=== PATIENT | female | born 1965 | race American Indian/Alaskan Native ===

== ENCOUNTER 2016-05-09 10:07 | Outpatient (CLI) | payer OTHER ==
--- NOTE | 2016-05-09 13:44 | Mammography Report ---
BILATERAL DIGITAL SCREENING MAMMOGRAM with CAD: 05/09/16 10:07:00 CLINICAL: Baseline screening. FINDINGS: The breasts are almost entirely fatty.A few bilateral benign calcifications. No mass, architectural distortion or suspicious calcifications. IMPRESSION: No mammographic evidence of malignancy. BI-RADS CATEGORY: 2 -- Benign RECOMMENDATION: Routine mammographic screening in one year. COMMENT: Patient follow-up letters are generated by our [employer] application.
== END 2016-05-09 10:08 | disposition home or self-care (01) ==
LOC: SPVWC 10:07
PROVIDERS: ATTEND Family Medicine
DX: Z12.31 Encounter for screening mammogram for malignant neoplasm of breast (principal)
CPT/HCPCS: 77067; G0202

== ENCOUNTER 2016-06-04 10:32 | Outpatient (CLI) | payer OTHER ==
--- NOTE | 2016-06-05 10:08 | Ultrasound Report ---
TRANSABDOMINAL AND TRANSVAGINAL PELVIC ULTRASOUND: 06/04/16 10:32:00 CLINICAL: Enlarged uterus. FINDINGS: Transabdominal and transvaginal pelvic ultrasound demonstrated a retroflexed uterus measuring 9.2 x 5.5 x 6.4 cm. Normal uterine contour. An anterior intramural fundal fibroid measures 1.0 x 0.5 x 0.8 cm an echogenic anterior cervical mass measures 1.5 x 1.2 x 1.7 cm. The endometrium is normal and measures 3.2 m AP thickness. Normal ovaries with a dominant 1.4 cm follicle the right ovary. The right ovary measures 2.6 x 2.1 x 2.8cm. The left ovary measures 3.3 x 1.5 x 1.4cm. No adnexal mass. No free fluid. Normal urinary bladder. IMPRESSION: 1. A retroflexed fibroid uterus with no uterine enlargement. 2. A 1.7 cm anterior cervical mass. This may be a calcified fibroid but neoplasm is a consideration. 3. Normal ovaries.
== END 2016-06-04 10:33 | disposition home or self-care (01) ==
LOC: SPVIMAG 10:32
PROVIDERS: ATTEND Family Medicine
DX: D25.9 Leiomyoma of uterus, unspecified (principal); N88.8 Other specified noninflammatory disorders of cervix uteri
CPT/HCPCS: 76830; 76856

== ENCOUNTER 2017-07-15 08:54 | Outpatient (CLI) | payer OTHER ==
--- NOTE | 2017-07-15 13:31 | Mammography Report ---
BILATERAL DIGITAL SCREENING MAMMOGRAM with CAD: 07/15/17 08:54:00 CLINICAL: Routine screening. COMPARISON:05/09/16 FINDINGS: The breasts are almost entirely fatty. No mass, architectural distortion or suspicious calcifications. IMPRESSION: No mammographic evidence of malignancy. BI-RADS CATEGORY: 1 - - Negative RECOMMENDATION: Routine mammographic screening in one year. COMMENT: Patient follow-up letters are generated by our [employer] application.
== END 2017-07-15 08:55 | disposition home or self-care (01) ==
LOC: SPVWC 08:54
PROVIDERS: ATTEND Family Medicine
DX: Z12.31 Encounter for screening mammogram for malignant neoplasm of breast (principal)
CPT/HCPCS: 77067

== ENCOUNTER 2018-09-10 15:10 | Outpatient (CLI) | payer OTHER ==
--- NOTE | 2018-09-10 16:17 | Mammography Report ---
BILATERAL DIGITAL SCREENING MAMMOGRAM WITH CAD INDICATION: Routine screening mammography. TECHNIQUE: Digital bilateral 2D mammography was obtained in the craniocaudal and mediolateral obliq ue projections. This examination was interpreted with the benefit of Computer-Aided Detection analysi s. COMPARISON: 07/15/2017 FINDINGS: Breast Density: The breasts are almost entirely fatty. No mass, architectural distortion or suspicious calcifications. IMPRESSION:No mammographic evidence of malignancy. BI-RADS Category 1: Negative. No mammographic evidence of malignancy. Recommend routine screening m ammography in one year. A "normal" or negative report should not discourage follow up or biopsy of a clinically significant f inding. A written summary of these findings will be mailed to the patient. The patient will be entered into a mammography reporting system which will generate a reminder letter for the patient's next appointmen t at the appropriate interval. The [employer] recommends yearly mammograms starting at age 40 and continuing as l rupa as a woman is in good health. Breast MRI is recommended for women with an approximate 20-25% or greater lifetime risk of breast cancer, including women with a strong family history of breast or ova jenny cancer or who have been treated for Hodgkin's disease. Signer Name: Chino Gr MD Signed: 09/10/2018 4:13 PM Workstation Name: [id number]
== END 2018-09-10 15:11 | disposition home or self-care (01) ==
LOC: SPVWC 15:10
PROVIDERS: ATTEND Family Medicine
DX: Z12.31 Encounter for screening mammogram for malignant neoplasm of breast (principal)
CPT/HCPCS: 77067